=== PATIENT | female | born 1985 | race Caucasian/White ===

== ENCOUNTER → 2021-04-03 | Outpatient (CLI) | payer MEDICARE, OTHER | LOC: NM 08:08 | DX: R93.89 Abnormal findings on diagnostic imaging of other specified body structures (principal) | CPT/HCPCS: 78306; A9503 ==

== ENCOUNTER → 2021-04-04 | Outpatient (CLI) | payer MEDICARE, OTHER ==
[2021-04-04 09:53] LABS: HEMOGLOBIN 11.8 gm/dl (12.3-15.3); RED BLOOD COUNT 3.95 M/UL (4.00-5.10); WHITE BLOOD COUNT 4.9 K/UL (4.5-11.0)
[2021-04-04 10:00] LABS: BUN/CREATININE RATIO 16 (0-10)
[2021-04-05 11:14] LABS: CEA 0.5 ng/mL (0.0-4.7)
== END ==
LOC: CT 08:29
PROVIDERS: Internal Medicine Hematology & Oncology
DX: C50.411 Malignant neoplasm of upper-outer quadrant of right female breast (principal); R42 Dizziness and giddiness; R63.4 Abnormal weight loss; F43.22 Adjustment disorder with anxiety
CPT/HCPCS: 36415; 71260; 80053; 82378; 85025; 86300; Q9967